=== PATIENT | female | born 1950 | race Caucasian/White ===

== ENCOUNTER 2017-03-28 09:40 | Day surgery (SDC) | payer OTHER ==
[~2017-03-28] VITALS: Ht 157.5 cm; Wt 80.1 kg
[2017-03-28 11:08] VITALS: Ht 157.5 cm; Wt 80.1 kg
[2017-03-28] MEDS ORDERED: OMEPRAZOLE PO (11:16)
[2017-03-28] MEDS ORDERED: PROPOFOL 40 ML ONE (11:28)
[2017-03-28 11:30] VITALS: BP 131/67; PULSE 69; RESP 24
[2017-03-28 12:26] VITALS: BP 125/65; PULSE 62; RESP 20
--- NOTE | 2017-03-28 13:15 | GILP ---
DATE OF PROCEDURE: 03/28/2017 NAME OF PROCEDURE: Colonoscopy and biopsy. SURGEON: Ally Muniz MD PREOPERATIVE DIAGNOSES: 1. Change in bowel habit. 2. Rectal bleeding. 3. History of colon polyps. POSTOPERATIVE DIAGNOSES: 1. Colonoscopy all the way to the cecum. 2. Small transverse colon polyp was removed using the biopsy forceps. 3. The patient had inflamed prominent fold in the sigmoid colon and biopsies were taken for histopa thology. 4. Internal hemorrhoids. INDICATION FOR THE PROCEDURE: Ms. Manda Martinez is a 66-year-old female patient who had change in t he bowel habit associated with rectal bleeding. She had history of colon polyps. The patient was s cheduled for colonoscopy for further evaluation. The procedure and possible complications were well explained to the patient, she understood and cons ented to the procedure. DESCRIPTION OF PROCEDURE: Under the influence of anesthesia, the colonoscope was carefully introduc ed in the rectum and under direct vision, it was advanced all the way to the cecum. FINDINGS: The patient had a small transverse colon polyp and it was removed using the biopsy forcep s. She was noted to have a prominent inflamed fold in the sigmoid colon, and biopsies were taken fo r histopathology. She was noted to have diverticulosis of the colon. She also had internal hemorrh oids. She tolerated the procedure very well and there was no complication from the procedure. At the end of the procedure, she was awake with stable vital signs and she was discharged home to the care of h er family. IMPRESSION: 1. Colonoscopy all the way to the cecum. 2. Small transverse colon polyp was removed using the biopsy forceps. 3. Prominent inflamed folds on the sigmoid colon plus biopsy. 4. Internal hemorrhoids. 5. Diverticulosis of the colon. PLAN: 1. High fiber diet. 2. Anusol-HC 2.5% cream at bedtime p.r.n. 3. Await histopathology reports. 4. Next screening colonoscopy in 3 years. Dictated By: ALLY DE LA ROSA/MASOOD Conf#: [id number] DID#: [id number]
== END 2017-03-28 17:32 | disposition home or self-care (01) ==
LOC: GIL 09:40
PROVIDERS: ATTEND Internal Medicine Gastroenterology
DX: R19.4 Change in bowel habit (principal); D12.3 Benign neoplasm of transverse colon; D12.5 Benign neoplasm of sigmoid colon; K57.90 Diverticulosis of intestine, part unspecified, without perforation or abscess without bleeding; K64.8 Other hemorrhoids